=== PATIENT | female | born 1960 | race Caucasian/White ===

== ENCOUNTER → 2021-08-31 | Outpatient (CLI) | payer OTHER ==
--- NOTE | 2021-08-31 14:19 | DIREP ---
PROCEDURE:XRAY SPINE LUMBAR MIN 4 VWS COMPARISON:None. INDICATIONS:LOW BACK PAIN TECHNIQUE:AP, lateral, bilateral oblique, and coned down lateral views of the lumbar spine are provided. FINDINGS: ALIGNMENT:Normal. VERTEBRAE:No compression deformity is seen. Anterior spurring is seen from L2-3 through L5-S1 most prominent at L5-S1. DISK SPACES:Moderate disc space narrowing is seen at L5-S1. SPONDYLOLISTHESIS:None. SACROILIAC JOINTS:Normal. OTHER:Normal. CONCLUSION:Mild to moderate degenerative changes from L2-3 through L5-S1 most prominent at L5-S1 with moderate disc space narrowing at this level. Dictated by: Mik Barrios M.D. on 08/31/2021 at 02:15 PM
== END | disposition home or self-care (01) ==
LOC: RAD 12:45
PROVIDERS: ATTEND Family Medicine
DX: M47.816 Spondylosis without myelopathy or radiculopathy, lumbar region (principal); M48.07 Spinal stenosis, lumbosacral region; M77.8 Other enthesopathies, not elsewhere classified
CPT/HCPCS: 72110